=== PATIENT | female | born 1955 | race Two or more races ===

== ENCOUNTER 2019-07-23 11:23 | Outpatient (CLI) | payer OTHER ==
[~2019-07-23 11:23] MED LIST: ALLEGRA60 M1; LIPITOR20 MG; SINGULAIR10 MG
== END 2019-07-23 12:30 | disposition home or self-care (01) ==
LOC: SONOGRAMA 11:23 → MAMO-SONO 13:15
DX: E03.8 Other specified hypothyroidism (principal); E04.2 Nontoxic multinodular goiter

== ENCOUNTER 2020-09-21 17:00 | Emergency (ER) | payer OTHER ==
[~2020-09-21] VITALS: Ht 162.6 cm; Wt 63.0 kg
[2020-09-21] MEDS ORDERED: JANTOVEN3 MG (17:17)
[2020-09-21] MEDS ORDERED: JANTOVEN4 MG (17:19)
[2020-09-21] MEDS ORDERED: LEVOTHYROXINE25 MCG (17:20)
[2020-09-21] MEDS ORDERED: BACTRIM DS TAB1 EACH PO (21:30)
== END 2020-09-21 21:56 | disposition home or self-care (01) ==
LOC: ER 17:00
DX: N39.0 Urinary tract infection, site not specified (principal); R31.0 Gross hematuria

== ENCOUNTER 2021-02-25 13:31 | Outpatient (CLI) | payer OTHER ==
[~2021-02-25 13:31] MED LIST changes: +BACTRIM DS TAB1 EACH PO; +JANTOVEN3 MG; +JANTOVEN4 MG; +LEVOTHYROXINE25 MCG
== END 2021-02-25 14:22 | disposition home or self-care (01) ==
LOC: MAMO-SONO 13:31
PROVIDERS: ATTEND Internal Medicine
DX: Z12.31 Encounter for screening mammogram for malignant neoplasm of breast (principal); N64.59 Other signs and symptoms in breast; E78.89 Other lipoprotein metabolism disorders; E11.51 Type 2 diabetes mellitus with diabetic peripheral angiopathy without gangrene; E55.9 Vitamin D deficiency, unspecified; I10 Essential (primary) hypertension; M54.5 Low back pain; E03.8 Other specified hypothyroidism; Q23.8 Other congenital malformations of aortic and mitral valves; E46 Unspecified protein-calorie malnutrition; E44.0 Moderate protein-calorie malnutrition; G62.89 Other specified polyneuropathies; I34.0 Nonrheumatic mitral (valve) insufficiency; I36.1 Nonrheumatic tricuspid (valve) insufficiency

== ENCOUNTER 2021-03-10 13:31 | Outpatient (CLI) | payer OTHER | END 2021-03-10 13:34 | disposition home or self-care (01) | LOC: NUCLEAR 13:31 | PROVIDERS: ATTEND Internal Medicine | DX: M54.5 Low back pain (principal); M81.0 Age-related osteoporosis without current pathological fracture ==